=== PATIENT | female | born 1985 | race Caucasian/White ===

== ENCOUNTER → 2020-10-26 17:31 | Outpatient (CLI) | payer OTHER, SELFPAY ==
[2020-10-26 18:02] LABS: COVID19 -Nasal RAPID Negative (Negative)
== END ==
PROVIDERS: Visit Provider Student in an Organized Health Care Education/Training Program
DX: J02.9 Acute pharyngitis, unspecified (principal); R09.81 Nasal congestion; R51.9 Headache, unspecified; Z20.822 Contact with and (suspected) exposure to COVID-19
CPT/HCPCS: 87070; 87077; 87147; 87635

== ENCOUNTER 2025-04-17 18:22 | Emergency (ER) | payer OTHER, SELFPAY ==
[2025-04-17 18:30] VITALS: BP 130/67; PULSE 76; RESP 18; TEMP 36.8; O2SAT 100; BMI 24.2
--- NOTE | 2025-04-17 19:12 | PC.NURSE ---
Patient VDC via registration.
== END 2025-04-17 19:15 | disposition left against medical advice (07) ==
PROVIDERS: Emergency Provider Emergency Medicine; PCP Physician Assistant
CPT/HCPCS: 99281